=== PATIENT | female | born 1950 | race Caucasian/White ===

== ENCOUNTER → 2016-06-09 | Outpatient (CLI) | payer BC | END | disposition home or self-care (01) | LOC: C.MAMM 10:51 | PROVIDERS: ATTEND Nurse Practitioner Family | DX: N95.8 Other specified menopausal and perimenopausal disorders (principal); M85.80 Other specified disorders of bone density and structure, unspecified site ==

== ENCOUNTER → 2016-09-28 | Outpatient (CLI) | payer BC ==
--- NOTE | 2016-09-29 12:46 | MAMMOGRAPHY REPORT ---
BILATERAL DIGITAL SCREENING MAMMOGRAM TOMOSYNTHESIS WITH CAD: 09/28/2016 CLINICAL HISTORY: Routine screening. Patient has no complaints. TECHNIQUE: Breast tomosynthesis in addition to standard 2D mammography was performed. Current study was also evaluated with a Computer Aided Detection (CAD) system. COMPARISON: Comparison is made to exams dated: 09/26/2015 mammogram, 01/12/2013 mammogram, 01/06/2013 ma mmogram, 09/30/2011 mammogram, 06/06/2010 mammogram, and 06/04/2010 mammogram - [facility] er. BREAST COMPOSITION: The tissue of both breasts is heterogeneously dense, which may obscure small mas ses. FINDINGS: The parenchymal pattern is unchanged. There are a few benign appearing punctate microcalc ifications. No developing mass, architectural distortion or cluster of suspicious microcalcification s is seen in either breast. IMPRESSION: ACR BI-RADS CATEGORY 2: BENIGN There is no mammographic evidence of malignancy. A 1 year screening mammogram is recommended. The pa tient will receive written notification of the results. Approximately 10% of breast cancers are not detected with mammography. A negative mammographic report should not delay biopsy if a clinically suggestive mass is present. Earline Herrrea M.D. ay/:09/28/2016 21:50:24 Roentgenologist: Noreen FRANCOIS)(Lidia)(BD), [facility] letter sent: Normal 1/2 BI-RADS Code: ACR BI-RADS Category 2: Benign
== END | disposition home or self-care (01) ==
LOC: C.MAMM 14:12
PROVIDERS: ATTEND Nurse Practitioner Family
DX: Z12.31 Encounter for screening mammogram for malignant neoplasm of breast (principal)

== ENCOUNTER → 2017-01-28 | Outpatient (CLI) | payer BC ==
--- NOTE | 2017-01-28 09:45 | DIAGNOSTIC IMAGING REPORT ---
L KNEE 3 VIEWS CLINICAL HISTORY: Left knee pain. Effusion of left knee. COMPARISON: Left knee MRI July 16, 2016 and left knee radiographs November 19, 2016. FINDINGS: Alignment of the left knee is in anatomic. There is a large left knee joint effusion. This has increased in size since exam of November 19, 2016. There is mild osteoarthrosis within the patellofemoral compartment. There is minimal osteophytosis within the medial compartment. IMPRESSION: 1. Large left knee joint effusion, increased in size since radiographs of November 19, 2016. 2. Mild to moderate osteophytosis within the patellofemoral compartment and mild osteoarthritis within the medial compartment of the left knee. Electronically signed by: Franky Ojeda M.D. 01/28/2017 9:43 AM Dictated Date/Time: 01/28/2017 9:41 AM
== END | disposition home or self-care (01) ==
LOC: C.RAD1850 09:17
PROVIDERS: ATTEND Internal Medicine Rheumatology
DX: K51.90 Ulcerative colitis, unspecified, without complications (principal); M25.462 Effusion, left knee; M25.562 Pain in left knee

== ENCOUNTER → 2017-05-13 | Outpatient (CLI) | payer OTHER | END | disposition home or self-care (01) | LOC: C.LABBC 08:29 | PROVIDERS: ATTEND Orthopaedic Surgery Sports Medicine | DX: M25.562 Pain in left knee (principal) ==

== ENCOUNTER → 2017-07-15 | Outpatient (CLI) | payer OTHER ==
--- NOTE | 2017-07-15 15:09 | DIAGNOSTIC IMAGING REPORT ---
RIGHT LOWER EXTREMITY VENOUS DOPPLER HISTORY: RT LEG PAIN,R/O DVT COMPARISON STUDY: None. FINDINGS: There is normal compressibility, flow, and augmentation within the right lower extremity deep venous system. There is a 9.2 x 4.8 x 2.2 cm septated cystic lesion within the popliteal fossa which extend into the calf. This favors a popliteal cyst. IMPRESSION: No DVT within the right lower extremity. Large septated popliteal cyst. Electronically signed by: Gee Martin M.D. 07/15/2017 3:08 PM Dictated Date/Time: 07/15/2017 3:07 PM
== END | disposition home or self-care (01) ==
LOC: C.ULTR 14:21
PROVIDERS: ATTEND Student in an Organized Health Care Education/Training Program
DX: M25.561 Pain in right knee (principal); M71.21 Synovial cyst of popliteal space [Baker], right knee; R79.89 Other specified abnormal findings of blood chemistry

== ENCOUNTER → 2017-07-15 | Outpatient (CLI) | payer OTHER ==
--- NOTE | 2017-07-15 11:07 | DIAGNOSTIC IMAGING REPORT ---
R KNEE 1 OR 2 VIEWS ROUTINE CLINICAL HISTORY: PAIN IN R KNEE COMPARISON: None. DISCUSSION: No fractures or dislocations are visualized. The joint spaces appear well-preserved. There is a trace joint effusion. IMPRESSION: Trace joint effusion. No evidence of fracture. No significant joint space narrowing Electronically signed by: Hong Morales M.D. 07/15/2017 11:06 AM Dictated Date/Time: 07/15/2017 11:05 AM
== END | disposition home or self-care (01) ==
LOC: C.RAD1850 10:53
PROVIDERS: ATTEND Student in an Organized Health Care Education/Training Program
DX: M25.561 Pain in right knee (principal)

== ENCOUNTER → 2017-07-22 | Outpatient (CLI) | payer OTHER | END | disposition home or self-care (01) | LOC: C.LABBC 09:10 | PROVIDERS: ATTEND Orthopaedic Surgery Sports Medicine | DX: M25.462 Effusion, left knee (principal) ==